=== PATIENT | female | born 1975 | race Caucasian/White ===

== ENCOUNTER 2017-02-16 11:59 | Emergency (ER) | payer SELFPAY ==
[2017-02-16] MEDS ORDERED: AMOXICILLIN TRIHYDRATE 500 MG CAPSULE PO ONE (12:58)
[2017-02-16] MEDS ORDERED: DEXAMETHASONE SOD PHOS INJ 10 MG/1 ML VIAL IM ONE (12:59)
--- NOTE | 2017-02-16 13:03 | ER Document Report ---
ED ENT - General Chief Complaint: Sore Throat Stated Complaint: SORE THROAT, SWOLLEN GLANDS Time Seen by Provider: 02/16/17 12:37 Mode of Arrival: Ambulatory Information source: Patient Notes: 41-year-old female presents to ED for complaint of throat pain that started when she woke up this morning. She denies any fever. TRAVEL OUTSIDE OF THE [place] IN LAST 30 DAYS: No - HPI Patient complains to provider of: Throat problem Onset: This morning Onset/Duration: Persistent Quality of pain: Sharp Severity: Moderate Pain Level: 4 Context: denies: Recent Illness Location of pain: Throat Associated symptoms: Sore throat, Swollen glands Similar symptoms previously: Yes Recently seen / treated by doctor: No - Related Data Allergies/Adverse Reactions: Sulfa (Sulfonamide Antibiotics) Allergy (Verified 11/08/14 11:30) Past Medical History - General Information source: Patient - Social History Smoking Status: Current Every Day Smoker Cigarette use (# per day): Yes - Half a pack per day Chew tobacco use (# tins/day): No Smoking Education Provided: Yes - 7 2 minutes Frequency of alcohol use: None Drug Abuse: None Lives with: Family Family History: Arthritis, CAD, CVA, DM, Hyperlipidemia, Hypertension, Malignancy, Thyroid Disfunction. denies: COPD Patient has suicidal ideation: No Patient has homicidal ideation: No - Past Medical History Cardiac Medical History: Reports: None Pulmonary Medical History: Reports: Hx Asthma EENT Medical History: Reports: None Neurological Medical History: Reports: None Endocrine Medical History: Reports: None Renal/ Medical History: Reports: None Malignancy Medical History: Reports: None GI Medical History: Reports: None Musculoskeltal Medical History: Reports Hx Arthritis, Reports Hx Musculoskeletal Trauma - Left shoulder fracture Skin Medical History: Reports None Psychiatric Medical History: Reports: Hx Anxiety, Hx Depression Traumatic Medical History: Reports: Hx Fractures - Left shoulder Infectious Medical History: Reports: None Past Surgical History: Reports: Hx Orthopedic Surgery - left shoulder, Hx Tubal Ligation - Immunizations Immunizations up to date: Yes Hx Diphtheria, Pertussis, Tetanus Vaccination: Yes Review of Systems - Review of Systems Constitutional: No symptoms reported EENT: Throat pain Cardiovascular: No symptoms reported Respiratory: No symptoms reported Gastrointestinal: No symptoms reported Genitourinary: No symptoms reported Female Genitourinary: No symptoms reported Musculoskeletal: No symptoms reported Skin: No symptoms reported Hematologic/Lymphatic: No symptoms reported Neurological/Psychological: No symptoms reported -: Yes All other systems reviewed and negative Physical Exam - Vital signs Vitals: Temp Pulse Resp BP Pulse Ox 98.8 F 116 H 18 107/66 99 02/16/17 12:04 02/16/17 12:04 02/16/17 12:04 02/16/17 12:04 02/16/17 12:04 Interpretation: Normal - General General appearance: Appears well, Alert - HEENT Head: Normocephalic, Atraumatic Eyes: Normal Pupils: PERRL Ears: Normal External canal: Normal Tympanic membrane: Normal Sinus: Normal Nasal: Normal Mouth/Lips: Normal Mucous membranes: Normal Pharynx: Erythema, Exudate, Tonsillar hypertrophy. No: Peritonsillar abscess, Post nasal drainage, Retropharyngeal abscess, Uvular edema, Potential airway comprom. Neck: Anterior cervical chain, Lymphadenopathy - Respiratory Respiratory status: No respiratory distress Chest status: Nontender Breath sounds: Normal Chest palpation: Normal - Cardiovascular Rhythm: Regular Heart sounds: Normal auscultation Murmur: No - Abdominal Inspection: Normal Distension: No distension Bowel sounds: Normal Tenderness: Nontender Organomegaly: No organomegaly - Back Back: Normal, Nontender - Extremities General upper extremity: Normal inspection, Nontender, Normal color, Normal ROM , Normal temperature General lower extremity: Normal inspection, Nontender, Normal color, Normal ROM , Normal temperature, Normal weight bearing. No: Gabriela's sign - Neurological Neuro grossly intact: Yes Cognition: Normal Orientation: AAOx4 [place] Coma Scale Eye Opening: Spontaneous Marilyn Coma Scale Verbal: Oriented [place] Coma Scale Motor: Obeys Commands [place] Coma Scale Total: 15 Speech: Normal Motor strength normal: LUE, RUE, LLE, RLE Sensory: Normal - Psychological Associated symptoms: Normal affect, Normal mood - Skin Skin Temperature: Warm Skin Moisture: Dry Skin Color: Normal Course - Re-evaluation Re-evalutation: 02/16/17 22:02 Patient treated with dexamethasone and Penicillin VK and discharged home with prescription for Penicillin VK. Patient to follow-up with primary doctor. - Vital Signs Vital signs: Temp Pulse Resp BP Pulse Ox 99.9 F 99 20 97/57 L 100 02/16/17 13:06 02/16/17 13:06 02/16/17 13:06 02/16/17 13:06 02/16/17 13:06 Discharge - Discharge Clinical Impression: Sore throat URI (upper respiratory infection) Qualifiers: URI type: unspecified URI Qualified Code(s): J06.9 - Acute upper respiratory infection, unspecified Condition: Stable Disposition: HOME, SELF-CARE Instructions: Family Physicians / Practices, Use of [id number] Ibuprofen ([facility]) Additional Instructions: SORE THROAT: Sore throats may be caused by viruses, bacteria, or fungi. Most are due to a virus, and must get better on their own. Bacterial sore throats, particularly those due to "strep," need treatment with antibiotics. If an antibiotic is prescribed, be sure to take the medication for a full 10 days. Failure to take the antibiotic can result in complications such as rheumatic fever. Sometimes, an injection of antibiotics is given instead of pills or liquid. This single "shot" is equal in effectiveness to the oral medication. To relieve symptoms, take acetaminophen for pain. Sip clear liquids frequently, or eat popsicles or ice chips. Anesthetic sprays or lozenges may help. Make sure the air in the room is not too dry. Avoid using decongestants or antihistamines. Call the doctor if there is no improvement in two days, or if you have difficulty breathing, increasing throat pain, high fever, rash, or frequent vomiting. PENICILLIN V K: You have been given a prescription for Penicillin VK. Your physician has determined that this is the best antibiotic for your condition. Pen VK can be taken with meals, however more of the antibiotic gets into the bloodstream if it's taken on an empty stomach. Penicillin usually has no side effects. However, allergy to penicillins is common. If you have had an allergic reaction to any drug of the penicillin family, you should never take any other penicillin. Notify your doctor at once if you develop hives, itching, swelling, faintness, or shortness of breath. STEROID MEDICATION: You have been given a medicine of the cortisone/steroid class. This medication is used to control inflammation or allergy. It is usually only given for a short period of time, until the acute process subsides. There are usually no side effects from short-term use of cortisone-like medications. Some persons feel an increased sense of well-being and are not sleepy at bedtime. Long-term use of cortisone medications is best avoided, unless required for a severe condition. If your condition does not remit, or relapses after the course of corticosteroid medication, you should consult your physician. FOLLOW-UP CARE: If you have been referred to a physician for follow-up care, call the physician s office for an appointment as you were instructed or within the next two days. If you experience worsening or a significant change in your symptoms, notify the physician immediately or return to the Emergency Department at any time for re-evaluation. Prescriptions: Amoxicillin 875 mg PO BID #20 tablet Forms: Smoking Cessation Education, Return to Work
[2017-02-16 13:07] VITALS: BP 97/57
== END 2017-02-16 13:22 | disposition home or self-care (01) ==
LOC: ER 11:59
DX: J02.9 Acute pharyngitis, unspecified (principal); J06.9 Acute upper respiratory infection, unspecified; F17.210 Nicotine dependence, cigarettes, uncomplicated; Z88.2 Allergy status to sulfonamides; Z98.51 Tubal ligation status
CPT/HCPCS: 99282; J1100

== ENCOUNTER 2017-11-23 13:16 | Emergency (ER) | payer SELFPAY ==
--- NOTE | 2017-11-23 14:02 | ER Document Report ---
ED Medical Screen (RME) - General Chief Complaint: Abscess Stated Complaint: ABCESS ON ARM Time Seen by Provider: 11/23/17 13:45 Mode of Arrival: Ambulatory Information source: Patient Notes: 42-year-old female presented to ED for complaint of an abscess to the left axilla. She states is been there for 3-4 days. She states she has never had abscess before in her life. She states she is not have a history of MRSA. He states he has had a cyst in this area the pop and did she was fine. I have greeted and performed a rapid initial assessment of this patient. A comprehensive ED assessment and evaluation of the patient, analysis of test results and completion of medical decision making process will be conducted by an additional ED providers. TRAVEL OUTSIDE OF THE [place] IN LAST 30 DAYS: No - Related Data Allergies/Adverse Reactions: Sulfa (Sulfonamide Antibiotics) Allergy (Verified 11/08/14 11:30) Past Medical History - Social History Chew tobacco use (# tins/day): No Frequency of alcohol use: None Drug Abuse: None Pulmonary Medical History: Reports: Hx Asthma Renal/ Medical History: Denies: Hx Peritoneal Dialysis Musculoskeltal Medical History: Reports Hx Arthritis, Reports Hx Musculoskeletal Trauma - Left shoulder fracture Psychiatric Medical History: Reports: Hx Anxiety, Hx Depression Traumatic Medical History: Reports: Hx Fractures - Left shoulder Past Surgical History: Reports: Hx Orthopedic Surgery - left shoulder, Hx Tubal Ligation - Immunizations Immunizations up to date: Yes Hx Diphtheria, Pertussis, Tetanus Vaccination: Yes Physical Exam - Vital signs Vitals: Temp Pulse Resp BP Pulse Ox 98.7 F 83 18 95/60 L 98 11/23/17 13:21 11/23/17 13:21 11/23/17 13:21 11/23/17 13:21 11/23/17 13:21 Course - Vital Signs Vital signs: Temp Pulse Resp BP Pulse Ox 98.7 F 83 18 95/60 L 98 11/23/17 13:21 11/23/17 13:21 11/23/17 13:21 11/23/17 13:21 11/23/17 13:21
[2017-11-23] MEDS ORDERED: DOXYCYCLINE HYCLATE 100 MG TABLET PO ONE (14:44)
[2017-11-23] MEDS ORDERED: HYDROCODONE/ACETAMINOPHEN 5-325 MG TABLET PO ONE (14:44)
--- NOTE | 2017-11-23 14:49 | ER Document Report ---
ED Skin Rash/Insect Bite/Abscs - General Chief Complaint: Abscess Stated Complaint: ABCESS ON ARM Time Seen by Provider: 11/23/17 13:45 Mode of Arrival: Ambulatory Information source: Patient TRAVEL OUTSIDE OF THE [place] IN LAST 30 DAYS: No - HPI Patient complains to provider of: Tender/swollen area Notes: Patient is here with complaints of abscess to the left under arm. She states that the area has been swollen for the last few weeks but over the last couple days is gotten painful and red. She states that there is a small amount of drainage that came out of larger swollen area. She denies any fevers. She denies any nausea, vomiting, diarrhea. No difficulty breathing or swallowing. She denies a history of diabetes or immunosuppression. Her systolic blood pressure is 95, the patient states that that is extremely normal for her. She denies any other symptoms or complaints at this time. - Related Data Allergies/Adverse Reactions: Sulfa (Sulfonamide Antibiotics) Allergy (Verified 11/08/14 11:30) Past Medical History - General Information source: Patient - Social History Smoking Status: Current Every Day Smoker Chew tobacco use (# tins/day): No Frequency of alcohol use: None Drug Abuse: None Family History: Arthritis, CAD, CVA, DM, Hyperlipidemia, Hypertension, Malignancy, Thyroid Disfunction. denies: COPD Patient has suicidal ideation: No Patient has homicidal ideation: No Pulmonary Medical History: Reports: Hx Asthma Renal/ Medical History: Denies: Hx Peritoneal Dialysis Musculoskeltal Medical History: Reports Hx Arthritis, Reports Hx Musculoskeletal Trauma - Left shoulder fracture Psychiatric Medical History: Reports: Hx Anxiety, Hx Depression Traumatic Medical History: Reports: Hx Fractures - Left shoulder Past Surgical History: Reports: Hx Orthopedic Surgery - left shoulder, Hx Tubal Ligation - Immunizations Immunizations up to date: Yes Hx Diphtheria, Pertussis, Tetanus Vaccination: Yes Review of Systems - Review of Systems -: Yes All other systems reviewed and negative Physical Exam - Vital signs Vitals: Temp Pulse Resp BP Pulse Ox 98.7 F 83 18 95/60 L 98 11/23/17 13:21 11/23/17 13:21 11/23/17 13:21 11/23/17 13:21 11/23/17 13:21 - Notes Notes: GENERAL: alert, cooperative, nontoxic, no distress. HEAD: normocephalic, atraumatic EYES: conjunctiva pink without discharge, no external redness or swelling. EARS: no external swelling, no external redness NOSE: atraumatic, no external swelling MOUTH/THROAT: mucous membranes moist and pink NECK: soft, supple, full range of motion, no meningismus. CHEST: no distress, lungs clear and equal throughout. No wheezing, rales, rhonchi. CARDIAC: regular rate and rhythm, no murmur, normal capillary refill, normal pulses. BACK: full range of motion, no CVA tenderness. EXTREMITIES: full range of motion of all extremities. No redness, no swelling. NEURO: alert and oriented 3, no focal deficits, full range of motion of all extremities. PYSCH: appropriate mood, affect. Patient is cooperative. SKIN: pink, warm, dry, no rash. 4 cm fluctuant abscess to the left axilla with surrounding cellulitis. Tenderness to palpation. There is a 1 cm fluctuant abscess no surrounding erythema to this abscess. They are both tender to palpation. No active drainage. Normal pulse and sensation distally. Course - Re-evaluation Re-evalutation: 11/23/17 14:46 Patient is nontoxic-appearing with stable vitals. Patient is here with complaints of left axillary abscess. She has 1 large abscess and one small abscess. She does have some surrounding cellulitis around the larger abscess. She is nontoxic-appearing and afebrile. She does not have diabetes or immunosuppression. At this point patient had both abscess I indeed. The larger one was packed. She will be given doxycycline due to her sulfa allergy as well as [place] for pain. She is instructed to return in 2 days or follow-up with her primary care doctor in 2 days for recheck. Try warm compresses to the sore area. She should follow-up sooner for worsening pain, fever, increased redness, persistent vomiting, or for any further concerns. Patient's systolic blood pressure is 95, she states that this is normal for her. The patient's emergency department workup and current diagnosis were explained to the patient and or family. Follow-up instructions were provided. Medications if prescribed were discussed. Instructions for when to return to the emergency department including specific worrisome symptoms were discussed with the patient and/or family. - Vital Signs Vital signs: Temp Pulse Resp BP Pulse Ox 98.7 F 83 18 95/60 L 98 11/23/17 13:21 11/23/17 13:21 11/23/17 13:21 11/23/17 13:21 11/23/17 13:21 Procedures - Incision and Drainage left axilla Type: Simple Anesthetic type: 1% Lidocaine Blade size: 11 I&D procedure: Betadine prep applied Incision Method: Incision made by scalpel Amount/type of drainage: moderate purulent Notes: 11/23/17 14:47 Probe with hemostats. Packed with iodoform gauze. left proxiaml arm Type: Simple Anesthetic type: 1% Lidocaine Blade size: 11 I&D procedure: Betadine prep applied, Sterile dressing applied Incision Method: Incision made by scalpel Amount/type of drainage: minimal purulent Notes: 11/23/17 14:48 Probe with hemostats. Patient tolerated both procedures well. Discharge - Discharge Clinical Impression: Abscess of axilla, left, Cellulitis of axilla, left Condition: Stable Disposition: HOME, SELF-CARE Instructions: Abscess ([facility]), MRSA Cellulitis ([facility]), Post Incision and Drainage , Oral Narcotic Medication ([facility]) Additional Instructions: Take medication as prescribed. Apply warm compresses to sore area. Follow-up with your doctor in the next 2 days or return the emergency department in 2 days for recheck to have packing removed. Follow-up sooner for worsening pain, fever, spreading redness, persistent vomiting, or for any further concerns. Prescriptions: Doxycycline Hyclate 100 mg PO BID #20 capsule Hydrocodone/Acetaminophen [[place] 5-325 mg Tablet] 2 tab PO Q6H PRN #15 tab PRN Reason: Forms: Elevated Blood Pressure, Smoking Cessation Education Referrals: [facility] [Provider Group] - Follow up as needed
[2017-11-23 15:04] VITALS: BP 105/60
== END 2017-11-23 15:04 | disposition home or self-care (01) ==
LOC: ER 13:16
PROC: 0H9CXZZ Drainage of Left Upper Arm Skin, External Approach (ICD-10-PCS; principal; 2017-11-23)
DX: L02.414 Cutaneous abscess of left upper limb (principal); L03.112 Cellulitis of left axilla; F17.200 Nicotine dependence, unspecified, uncomplicated; Z88.2 Allergy status to sulfonamides; Z98.51 Tubal ligation status
CPT/HCPCS: 99283; 10061; A6266

== ENCOUNTER 2018-09-10 05:41 | Inpatient (IN) | payer SELFPAY ==
[2018-09-10] MEDS ORDERED: ONDANSETRON HCL INJ/PF 4 MG/2 ML SDV IV ONE ×3 (06:29→13:05)
[2018-09-10] MEDS ORDERED: NORMAL SALINE 1000 ML 1,000 ML IV ONE ×2 (06:29→10:42)
[2018-09-10] MEDS ORDERED: MORPHINE SULFATE 10 MG/ML INJ IV ONE ×3 (06:29→13:18)
[2018-09-10 07:08] LABS: HEMOGLOBIN 12.9 g/dL (12.0-15.5); MEAN CORPUSCULAR HEMOGLOBIN 30.2 pg (27.0-33.4); MEAN CORPUSCULAR HGB CONC 34.7 g/dL (32.0-36.0); MEAN CORPUSCULAR VOLUME 87 fl (80-97); PLATELET COUNT 286 10^3/uL (150-450); RED BLOOD COUNT 4.25 10^6/uL (3.72-5.28); RED CELL DISTRIBUTION WIDTH 12.7 % (11.5-14.0); WHITE BLOOD COUNT 20.7 10^3/uL (4.0-10.5)
[2018-09-10 07:33] LABS: ALANINE AMINOTRANSFERASE 19 U/L (9-52); ALBUMIN 3.7 g/dL (3.5-5.0); ALKALINE PHOSPHATASE 66 U/L (38-126); ANION GAP 7 (5-19); ASPARTATE AMINO TRANSFERASE 18 U/L (14-36); BILIRUBIN,DIRECT 0.2 mg/dL (0.0-0.4); BILIRUBIN,TOTAL 0.6 mg/dL (0.2-1.3); BLOOD UREA NITROGEN 18 mg/dL (7-20); CALCIUM 9.4 mg/dL (8.4-10.2); CARBON DIOXIDE 24 mmol/L (22-30); CHLORIDE 108 mmol/L (98-107); GLUCOSE 130 mg/dL (75-110); POTASSIUM 4.1 mmol/L (3.6-5.0); SODIUM 138.6 mmol/L (137-145); TOTAL PROTEIN 6.4 g/dL (6.3-8.2)
[2018-09-10 07:47] LABS: ABSOLUTE LYMPHOCYTES# (MANUAL) 0.2 10^3/uL (0.5-4.7); ABSOLUTE MONOCYTES # (MANUAL) 0.2 10^3/uL (0.1-1.4); ABSOLUTE NEUTROPHILS# (MANUAL) 20.3 10^3/uL (1.7-8.2); BASOPHILS % (MANUAL) 0 % (0-2); EOSINOPHILS % (MANUAL) 0 % (0-6); LYMPHOCYTES % (MANUAL) 1 % (13-45); MONOCYTES % (MANUAL) 1 % (3-13); OVALOCYTES SLIGHT; PLATELET COMMENT ADEQUATE; POIKILOCYTOSIS SLIGHT; SEGMENTED NEUTROPHILS % (MAN) 98 % (42-78); TOTAL CELLS COUNTED 100
[2018-09-10 07:58] LABS: APPEARANCE,URINE CLOUDY; BILIRUBIN,URINE NEGATIVE (NEGATIVE); COLOR,URINE YELLOW; GLUCOSE, URINE NEGATIVE (NEGATIVE); KETONES,URINE NEGATIVE (NEGATIVE); LEUKOCYTE ESTERASE,URINE MODERATE (NEGATIVE); NITRITE,URINE NEGATIVE (NEGATIVE); PROTEIN,URINE NEGATIVE (NEGATIVE)
[2018-09-10] MEDS ORDERED: CEFTRIAXONE 1 GM/D5W RTU 1 GM/50 ML RTUPB IV ONE (08:34)
[2018-09-10 08:42] LABS: BACTERIA (WET MOUNT) 3+ BACTERIA SEEN; RBCS (WET MOUNT) 1+ RBCS SEEN; T.VAGINALIS (WET MOUNT) NO TRICHOMONAS SEEN; WBCS (WET MOUNT) 3+ WBCS SEEN; YEAST (WET MOUNT) NO YEAST SEEN
--- NOTE | 2018-09-10 08:44 | RADIOLOGY REPORT (SQ) ---
EXAM DESCRIPTION: ACUTE ABDOMEN SERIES COMPLETED DATE/TIME: 09/10/2018 8:31 am REASON FOR STUDY: abd pain COMPARISON: None. NUMBER OF VIEWS: Three views. TECHNIQUE: Frontal chest, supine abdomen and upright/decubitus abdomen radiographic images acquired. LIMITATIONS: None. FINDINGS: CHEST: Lungs clear of infiltrates. FREE AIR: None. No abnormal gas collections. BOWEL GAS PATTERN: Nonobstructive pattern. No dilated loops or air fluid levels. Mild to moderate co lonic fecal stasis right side of the abdomen. CALCIFICATIONS: No suspicious calcifications. HARDWARE: None in the abdomen. SOFT TISSUES: No gross mass or suggestion of organomegaly. BONES: No acute fracture. No worrisome bone lesions. OTHER: No other significant finding. IMPRESSION: 1. No acute pulmonary findings. 2. NO RADIOGRAPHIC EVIDENCE FOR ACUTE ABDOMINAL DISEASE. Mild to moderate right-sided colonic fecal stasis. TECHNICAL DOCUMENTATION: JOB ID: [id number] [employer]- All Rights Reserved Reading location - IP/workstation name: [email or web address]
[2018-09-10] MEDS ORDERED: KETOROLAC TROMETHAMINE INJ/PF 30 MG/1 ML SDV IV ONE (09:58)
[2018-09-10 10:13] LABS: CHLAM PCR NOT DETECTED (NOT DETECT); GON PCR DETECTED (NOT DETECT)
--- NOTE | 2018-09-10 10:16 | RADIOLOGY REPORT (SQ) ---
EXAM DESCRIPTION: U/S NON-OB PELVIS TV W/O DOP COMPLETED DATE/TIME: 09/10/2018 9:58 am REASON FOR STUDY: Pelvic pain, leukocytosis COMPARISON: 05/07/2011 TECHNIQUE: Dynamic and static grayscale images acquired of the pelvis via transvaginal approach and recorded on PACS. Additional selected color Doppler and spectral images recorded. LIMITATIONS: None. FINDINGS: UTERUS: A hypoechoic mass near the uterine fundus of the uterus measures 2.0 x 1.8 x 1.6 cm. Considerations for this finding includes fibroid. ENDOMETRIAL STRIPE: No focal or generalized thickening. No masses. CERVIX: The cervix measures 2.5 cm in length No nabothian cysts. RIGHT OVARY AND DOPPLER: Normal size. A 1.5 x 0.9 x 1.2 cm dominant follicle. Normal arterial vascu lar flow without evidence for torsion. LEFT OVARY AND DOPPLER: Normal size. No worrisome masses. Normal arterial vascular flow without evide nce for torsion. FREE FLUID: None noted. OTHER: No other significant finding. MEASUREMENTS: UTERUS: 8.6 x 6.1 x 5.2 cm ENDOMETRIAL STRIPE: 10.3 mm RIGHT OVARY: 3.1 x 1.8 x 1.9 cm LEFT OVARY: 2.9 x 1.8 x 1.4 cm IMPRESSION: 1. Uterine fibroid. 2. A dominant follicle in the right ovary. TECHNICAL DOCUMENTATION: JOB ID: [id number] [employer]- All Rights Reserved Rev-10/20 Reading location - IP/workstation name: [email or web address]
--- NOTE | 2018-09-10 14:35 | RADIOLOGY REPORT (SQ) ---
EXAM DESCRIPTION: CT ABD/PELVIS WITH IV ORAL COMPLETED DATE/TIME: 09/10/2018 2:14 pm REASON FOR STUDY: +GC, WBC 21,000 ANC 20,300 COMPARISON: None. TECHNIQUE: CT scan of the abdomen and pelvis performed using helical scanning technique with dynamic intravenous contrast injection. Oral enteric contrast administered. Images reviewed with lung, soft tissue, and bone windows. Reconstructed coronal and sagittal MPR images reviewed. Delayed images for evaluation of the urinary system also acquired. All images stored on PACS. All CT scanners at this facility use dose modulation, iterative reconstruction, and/or weight based d osing when appropriate to reduce radiation dose to as low as reasonably achievable (ALARA). [facility]: Dose Right [facility]: CareDose [facility]: Dose Right [facility]: Teradose 4D [facility]: Epidemic Sound CONTRAST TYPE AND DOSE: contrast/concentration: Isovue 350.00 mg/ml; Total Contrast Delivered: 57.0 ml; Total Saline Delivered: 65.0 ml RENAL FUNCTION: None required. The patient is less than 50 years old. RADIATION DOSE: CT Rad equipment meets quality standard of care and radiation dose reduction techniq ues were employed. CTDIvol: 4.8 - 4.9 mGy. DLP: 768 mGy-cm.. LIMITATIONS: None. FINDINGS: LOWER CHEST: Bibasilar scarring or atelectasis. LIVER: Normal size. No masses. No dilated ducts. SPLEEN: Normal size. No focal lesions. PANCREAS: No masses. No significant calcifications. No adjacent inflammation or peripancreatic fluid collections. Pancreatic duct not dilated. GALLBLADDER: No identified stones by CT criteria. No inflammatory changes to suggest cholecystitis. ADRENAL GLANDS: No significant masses or asymmetry. RIGHT KIDNEY AND URETER: No solid masses. No significant calcifications. No hydronephrosis or hyd roureter. LEFT KIDNEY AND URETER: No solid masses. No significant calcifications. No hydronephrosis or hydr oureter. AORTA AND VESSELS: No aneurysm. No dissection. Renal arteries, SMA, celiac without stenosis. RETROPERITONEUM: No retroperitoneal adenopathy, hemorrhage or masses. BOWEL AND PERITONEAL CAVITY: No masses or inflammatory changes. No free fluid or peritoneal masses. APPENDIX: Normal. PELVIS: No mass. No free fluid. Normal bladder. ABDOMINAL WALL: No masses. No hernias. BONES: No significant or acute findings. OTHER: No other significant finding. IMPRESSION: 1. No acute CT findings to explain abdominal pain. 2. Normal appendix. TECHNICAL DOCUMENTATION: JOB ID: [id number] Quality ID # [id number]: Final reports with documentation of one or more dose reduction techniques (e.g., Au tomated exposure control, adjustment of the mA and/or kV according to patient size, use of iterative reconstruction technique) 2010 [employer]- All Rights Reserved Reading location - IP/workstation name: [email or web address]
[2018-09-10] MEDS ORDERED: AZITHROMYCIN 250 MG TABLET PO ONE (14:49)
--- NOTE | 2018-09-10 14:52 | ER Document Report ---
Entered by TIFFANIE NULL SCRIBE 09/10/18 0637 Acting as scribe for:JENN GOLDBERG MD ED General - General Chief Complaint: Abdominal Pain Stated Complaint: ABDOMINAL PAIN Time Seen by Provider: 09/10/18 06:19 Mode of Arrival: Ambulatory Information source: Patient, [facility] Records Notes: Patient is a 43 year old female presenting to the emergency department complain ing of bilateral lower abdominal pain. Patient states the symptoms were onset approximately 1 week ago but has progressively worsened today. She reports the pain radiates into her bilateral flanks and further complains of urinary frequency, nausea and vomiting. Patient states she began to vomit yesterday morning. She reports having a bowel movement this morning which did not worsen or alleviate her pain. She denies fevers, burning with urination or vaginal discharge. TRAVEL OUTSIDE OF THE [place] IN LAST 30 DAYS: No - Related Data Allergies/Adverse Reactions: Sulfa (Sulfonamide Antibiotics) Allergy (Verified 11/08/14 11:30) Past Medical History - General Information source: Patient, [facility] Records - Social History Smoking Status: Current Every Day Smoker Cigarette use (# per day): Yes Chew tobacco use (# tins/day): No Smoking Education Provided: No Frequency of alcohol use: None Drug Abuse: None Occupation: unemployed Lives with: Friend Family History: Arthritis, CAD, CVA, DM, Hyperlipidemia, Hypertension, Malig aris, Thyroid Disfunction Patient has suicidal ideation: No Patient has homicidal ideation: No Pulmonary Medical History: Reports: Hx Asthma Renal/ Medical History: Reports: Other - Class III pap smear secondary HPV Musculoskeletal Medical History: Reports Hx Arthritis, Reports Hx Musculoskeletal Trauma - Left shoulder fracture Psychiatric Medical History: Reports: Hx Anxiety, Hx Depression Traumatic Medical History: Reports: Hx Fractures - Left shoulder Past Surgical History: Reports: Hx Orthopedic Surgery - left shoulder, Hx Tubal Ligation - Immunizations Immunizations up to date: Yes Hx Diphtheria, Pertussis, Tetanus Vaccination: Yes Review of Systems - Review of Systems Constitutional: No symptoms reported EENT: No symptoms reported Cardiovascular: No symptoms reported Respiratory: No symptoms reported Gastrointestinal: See HPI, Abdominal pain, Nausea, Vomiting Genitourinary: See HPI, Frequency Female Genitourinary: No symptoms reported Musculoskeletal: No symptoms reported Skin: No symptoms reported Hematologic/Lymphatic: No symptoms reported Neurological/Psychological: No symptoms reported -: Yes All other systems reviewed and negative Physical Exam - Vital signs Vitals: Temp Pulse Resp BP Pulse Ox 98.4 F 99 18 111/60 100 09/10/18 05:46 09/10/18 05:46 09/10/18 05:46 09/10/18 05:46 09/10/18 05:46 - Notes Notes: GENERAL: Alert, interacts well. No acute distress. HEAD: Normocephalic, atraumatic. EYES: Pupils equal, round, and reactive to light. Extraocular movements intact. ENT: Oral mucosa moist, tongue midline. NECK: Full range of motion. Supple. Trachea midline. LUNGS: Clear to auscultation bilaterally, no wheezes, rales, or rhonchi. No respiratory distress. HEART: Regular rate and rhythm. No murmurs, gallops, or rubs. ABDOMEN: Soft, exquisitely tender across the entire abdomen, guarding. Non- distended. Bowel sounds absent in LLQ, present in RUQ, RLQ and LUQ. LLQ is also dull to percussion. PELVIC: Pelvic exam shows scant cervical discharge. Swabs were obtained that looked blood tinged. There was some tannish mucus color. Bimanual shows exquisite uterine tenderness. Not seem to be very tender to palpate the bladder. EXTREMITIES: Moves all 4 extremities spontaneously. No edema. NEUROLOGICAL: Alert and oriented x3. Normal speech. PSYCH: Normal affect, normal mood. SKIN: Warm, dry, normal turgor. No rashes or lesions noted. Course - Re-evaluation Re-evalutation: 09/10/18 09:15 Wet prep shows 3+ bacteria and 3+ WBCs. - Vital Signs Vital signs: Temp Pulse Resp BP Pulse Ox 98.4 F 103 H 20 88/54 L 103 H 09/10/18 13:18 09/10/18 13:18 09/10/18 13:18 09/10/18 13:18 09/10/18 13:18 - Laboratory Result Diagrams: 09/10/18 06:45 09/10/18 06:45 Laboratory results interpreted by me: 09/10/18 09/10/18 09/10/18 06:45 06:45 07:39 WBC 20.7 H Seg Neuts % (Manual) 98 H Lymphocytes % (Manual) 1 L Monocytes % (Manual) 1 L Abs Neuts (Manual) 20.3 H Abs Lymphs (Manual) 0.2 L Chloride 108 H Glucose 130 H Urine Blood MODERATE H Urine Urobilinogen 2.0 H Ur Leukocyte Esterase MODERATE H N.gonorrhoeae DNA (PCR) 09/10/18 08:35 WBC Seg Neuts % (Manual) Lymphocytes % (Manual) Monocytes % (Manual) Abs Neuts (Manual) Abs Lymphs (Manual) Chloride Glucose Urine Blood Urine Urobilinogen Ur Leukocyte Esterase N.gonorrhoeae DNA (PCR) DETECTED H - Diagnostic Test Radiology reviewed: Image reviewed, Reports reviewed - AAS--ascending colon constipation CT scan of the abdomen and pelvis with oral and IV contrast does not show abnormality. - Consults Dr. Sandoval Time consulted: 14:50 Consulted provider: will see as inpatient Discharge - Discharge Clinical Impression: Gonococcal PID, female Leukocytosis Qualifiers: Leukocytosis type: unspecified Qualified Code(s): D72.829 - Elevated white blood cell count, unspecified Fever Qualifiers: Fever type: unspecified Qualified Code(s): R50.9 - Fever, unspecified Urinary tract infection Qualifiers: Urinary tract infection type: site unspecified Hematuria presence: without hematuria Qualified Code(s): N39.0 - Urinary tract infection, site not specified Condition: Stable Disposition: ADMITTED INPATIENT Admitting Provider: [facility] Unit Admitted: Medical Floor Scribe Attestation: 09/10/18 06:52 I personally performed the services described in the documentation, reviewed and edited the documentation which was dictated to the scribe in my presence, and it accurately records my words and actions. I personally performed the services described in the documentation, reviewed and edited the documentation which was dictated to the scribe in my presence, and it accurately records my words and actions.
--- NOTE | 2018-09-10 20:04 | PDOC H&P ---
History of Present Illness Admission Date/PCP: 09/10/18 15:25 Patient complains of: lower abdominal pain History of Present Illness: FRANCISCO VORA is a 43 year old female presented to ER today with 2 day history of lower abdominal pain. +GC testing in ER with negative CT/sono for TOA. Significant leukocytosis noted on bloodwork therefore Veterinary Anatomist contacted for admission for PID. Past Medical History Pulmonary Medical History: Reports: Asthma Renal/ Medical History: Reports: Other - Class III pap smear secondary HPV Musculoskeltal Medical History: Reports: Arthritis Psychiatric Medical History: Reports: Depression Past Surgical History Past Surgical History: Reports: Orthopedic Surgery - left shoulder, Tubal Ligation Social History Lives with: Friend Smoking Status: Current Every Day Smoker Cigarettes Packs Per Day: 0.5 Number of Years Smokin Last Time Smoked: T-1 Frequency of Alcohol Use: None Hx Recreational Drug Use: No Hx Prescription Drug Abuse: No - Advance Directive Resuscitation Status: Full Code Family History Family History: Arthritis, CAD, CVA, DM, Hyperlipidemia, Hypertension, Malignancy, Thyroid Disfunction Parental Family History Reviewed: Yes Children Family History Reviewed: Yes Sibling(s) Family History Reviewed.: Yes Medication/Allergy Home Medications: Ferrous Sulfate [Feosol 325 mg Tablet] 325 mg PO DAILY 09/10/18 Allergies/Adverse Reactions: Sulfa (Sulfonamide Antibiotics) Allergy (Verified 11/08/14 11:30) Physical Exam - Physical Exam Vital Signs: Temp Pulse Resp BP Pulse Ox 98.3 F 104 H 18 94/57 L 98 09/10/18 19:29 09/10/18 19:29 09/10/18 19:29 09/10/18 19:29 09/10/18 19:29 Intake & Output 09/09/18 09/10/18 09/11/18 06:59 06:59 06:59 Intake Total 2049 Balance 2049 Weight 49.895 kg 49.9 kg Result Laboratory Results: 09/10/18 06:45 09/10/18 06:45 09/10/18 09/10/18 09/10/18 06:45 06:45 06:45 WBC 20.7 H RBC 4.25 Hgb 12.9 Hct 37.0 MCV 87 MCH 30.2 MCHC 34.7 RDW 12.7 Plt Count 286 Seg Neutrophils % Not Reportable Lymphocytes % Not Reportable Monocytes % Not Reportable Eosinophils % Not Reportable Basophils % Not Reportable Absolute Neutrophils Not Reportable Absolute Lymphocytes Not Reportable Absolute Monocytes Not Reportable Absolute Eosinophils Not Reportable Absolute Basophils Not Reportable Sodium 138.6 Potassium 4.1 Chloride 108 H Carbon Dioxide 24 Anion Gap 7 BUN 18 Creatinine 0.54 Est GFR ( Amer) > 60 Est GFR (Non-Af Amer) > 60 Glucose 130 H Calcium 9.4 Total Bilirubin 0.6 AST 18 ALT 19 Alkaline Phosphatase 66 Total Protein 6.4 Albumin 3.7 Serum HCG, Qual NEGATIVE Urine Color Urine Appearance Urine pH Ur Specific [place] Urine Protein Urine Glucose (UA) Urine Ketones Urine Blood Urine Nitrite Ur Leukocyte Esterase Urine WBC (Auto) Urine RBC (Auto) 09/10/18 07:39 WBC RBC Hgb Hct MCV MCH MCHC RDW Plt Count Seg Neutrophils % Lymphocytes % Monocytes % Eosinophils % Basophils % Absolute Neutrophils Absolute Lymphocytes Absolute Monocytes Absolute Eosinophils Absolute Basophils Sodium Potassium Chloride Carbon Dioxide Anion Gap BUN Creatinine Est GFR ( Amer) Est GFR (Non-Af Amer) Glucose Calcium Total Bilirubin AST ALT Alkaline Phosphatase Total Protein Albumin Serum HCG, Qual Urine Color YELLOW Urine Appearance CLOUDY Urine pH 5.0 Ur Specific [place] 1.020 Urine Protein NEGATIVE Urine Glucose (UA) NEGATIVE Urine Ketones NEGATIVE Urine Blood MODERATE H Urine Nitrite NEGATIVE Ur Leukocyte Esterase MODERATE H Urine WBC (Auto) 72 Urine RBC (Auto) 6 Impressions: Acute Abdomen Series 09/10/18 06:31 IMPRESSION: 1. No acute pulmonary findings. 2. NO RADIOGRAPHIC EVIDENCE FOR ACUTE ABDOMINAL DISEASE. Mild to moderate ri ght-sided colonic fecal stasis. Transvaginal US 09/10/18 08:32 IMPRESSION: 1. Uterine fibroid. 2. A dominant follicle in the right ovary. Abdomen/Pelvis CT 09/10/18 10:23 IMPRESSION: 1. No acute CT findings to explain abdominal pain. 2. Normal appendix. 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 Is this a current diagnosis for this admission?: Yes (2) Fever Qualifiers: Fever type: unspecified Qualified Code(s): R50.9 - Fever, unspecified Is this a current diagnosis for this admission?: Yes (3) Leukocytosis Qualifiers: Leukocytosis type: unspecified Qualified Code(s): D72.829 - Elevated white blood cell count, unspecified Is this a current diagnosis for this admission?: Yes - Time Time Spent: 30 to 50 Minutes Critical Time spent with patient: 15-24 minutes Anticipated discharge: Home Within: within 48 hours - Inpatient Certification Based on my medical assessment, after consideration of the patient's comorbidities, presenting symptoms, or acuity I expect that the services needed warrant INPATIENT care.: Yes I certify that my determination is in accordance with my understanding of Medicare's requirements for reasonable and necessary INPATIENT services [42 CFR 412.3e].: Yes Medical Necessity: Need for Pain Control, Need for IV Antibiotics - Plan Summary Plan Summary: plan for mefoxitan and doxycycline for PID treatment. was given Rocephin and z ithromax in the ER already for the +GC findings. Treatment needed for 48 hours to be adequate.
[2018-09-10] MEDS ORDERED: PROMETHAZINE HCL INJ 25 MG/1 ML VIAL IV PRN (20:08)
[2018-09-10] MEDS ORDERED: OXYCODONE-ACETAMINOPHEN 5-325 MG TABLET PO PRN (20:08)
[2018-09-10] MEDS ORDERED: DOXYCYCLINE HYCLATE INJ 100 MG VIAL IV SCH (20:15)
[2018-09-10] MEDS: OXYCODONE-ACETAMINOPHEN 5-325 MG TABLET PO PRN (20:59)
[2018-09-10] MEDS ORDERED: CEFOXITIN INJ 1 GM VIAL IV SCH (22:00)
[2018-09-10] MEDS: DOXYCYCLINE HYCLATE 100 MG in DEXTROSE 5%-WATER 250 ML IV SCH (22:11)
[2018-09-11] MEDS: IBUPROFEN 800 MG TABLET PO SCH ×4 (00:28→17:16)
[2018-09-11] MEDS: OXYCODONE-ACETAMINOPHEN 5-325 MG TABLET PO PRN ×4 (02:07→21:16)
[2018-09-11] MEDS: CEFOXITIN SODIUM 2 GM in DEXTROSE 5%-WATER 100 ML IV SCH ×3 (02:08→17:17)
[2018-09-11 07:40] LABS: HEMATOCRIT 31.7 % (36.0-47.0); MEAN CORPUSCULAR HEMOGLOBIN 30.2 pg (27.0-33.4); MEAN CORPUSCULAR HGB CONC 34.1 g/dL (32.0-36.0); MEAN CORPUSCULAR VOLUME 89 fl (80-97); PLATELET COUNT 235 10^3/uL (150-450); RED BLOOD COUNT 3.58 10^6/uL (3.72-5.28); RED CELL DISTRIBUTION WIDTH 12.7 % (11.5-14.0); WHITE BLOOD COUNT 20.6 10^3/uL (4.0-10.5)
[2018-09-11 08:48] LABS: HEMOGLOBIN 10.8 g/dL (12.0-15.5)
--- NOTE | 2018-09-11 09:24 | PDOC PROGRESS REPORT ---
Subjective Progress Note for:: 09/11/18 Subjective:: pt feeling better but still has stomach pain Reason For Visit: GONOCOCCAL PID,FEMALE,LEUKOCYTOSIS,FEVER,URINARY Physical Exam - Physical Exam Vital Signs: Temp Pulse Resp BP Pulse Ox 97.6 F 100 14 93/57 L 97 09/11/18 08:30 09/11/18 08:30 09/11/18 08:30 09/11/18 08:30 09/11/18 08:30 Intake & Output 09/10/18 09/11/18 09/12/18 06:59 06:59 06:59 Intake Total 2890 Balance 2890 Weight 49.895 kg 47.9 kg General appearance: PRESENT: cooperative GI/Abdominal exam: PRESENT: tenderness Result Laboratory Results: 09/11/18 06:04 09/10/18 06:45 09/11/18 06:04 WBC 20.6 H RBC 3.58 L Hgb 10.8 L D Hct 31.7 L MCV 89 MCH 30.2 MCHC 34.1 RDW 12.7 Plt Count 235 Impressions: Acute Abdomen Series 09/10/18 06:31 IMPRESSION: 1. No acute pulmonary findings. 2. NO RADIOGRAPHIC EVIDENCE FOR ACUTE ABDOMINAL DISEASE. Mild to moderate right-sided colonic fecal stasis. Transvaginal US 09/10/18 08:32 IMPRESSION: 1. Uterine fibroid. 2. A dominant follicle in the right ovary. Abdomen/Pelvis CT 09/10/18 10:23 IMPRESSION: 1. No acute CT findings to explain abdominal pain. 2. Normal appendix. 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
[2018-09-11] MEDS: DOCUSATE SODIUM 100 MG CAPSULE PO SCH ×2 (09:56→17:16)
[2018-09-11] MEDS: DOXYCYCLINE HYCLATE 100 MG in DEXTROSE 5%-WATER 250 ML IV SCH ×2 (10:55→21:17)
[2018-09-12] MEDS: IBUPROFEN 800 MG TABLET PO SCH ×3 (00:39→12:49)
[2018-09-12] MEDS: OXYCODONE-ACETAMINOPHEN 5-325 MG TABLET PO PRN ×2 (02:36→08:21)
[2018-09-12] MEDS: CEFOXITIN SODIUM 2 GM in DEXTROSE 5%-WATER 100 ML IV SCH ×2 (02:37→11:03)
[2018-09-12 10:54] LABS: ABSOLUTE BASOPHILS # (AUTO) 0.1 10^3/uL (0.0-0.2); ABSOLUTE EOSINOPHILS # (AUTO) 0.3 10^3/uL (0.0-0.6); ABSOLUTE LYMPHOCYTES (AUTO) 0.9 10^3/uL (0.5-4.7); ABSOLUTE MONOCYTES (AUTO) 0.5 10^3/uL (0.1-1.4); ABSOLUTE NEUT (AUTO) 11.7 10^3/uL (1.7-8.2); BASOPHILS % (AUTO) 0.4 % (0-2); EOSINOPHILS % (AUTO) 2.3 % (0-6); HEMATOCRIT 29.9 % (36.0-47.0); HEMOGLOBIN 10.4 g/dL (12.0-15.5); LYMPHOCYTES % (AUTO) 6.8 % (13-45); MEAN CORPUSCULAR HEMOGLOBIN 30.8 pg (27.0-33.4); MEAN CORPUSCULAR HGB CONC 34.7 g/dL (32.0-36.0); MEAN CORPUSCULAR VOLUME 89 fl (80-97); MONOCYTES % (AUTO) 3.6 % (3-13); PLATELET COUNT 221 10^3/uL (150-450); RED BLOOD COUNT 3.38 10^6/uL (3.72-5.28); RED CELL DISTRIBUTION WIDTH 12.8 % (11.5-14.0); SEGMENTED NEUTROPHILS % (AUTO) 86.9 % (42-78); TOTAL CELLS COUNTED % (AUTO) 100 %; WHITE BLOOD COUNT 13.5 10^3/uL (4.0-10.5)
[2018-09-12] MEDS: DOXYCYCLINE HYCLATE 100 MG in DEXTROSE 5%-WATER 250 ML IV SCH (11:03)
[2018-09-12] MEDS: DOCUSATE SODIUM 100 MG CAPSULE PO SCH (11:04)
[2018-09-12] MEDS ORDERED: LIDOCAINE HCL 1% INJ (FOR 250 MG VIAL) INJ ONE (13:00)
[2018-09-12] MEDS ORDERED: CEFTRIAXONE INJ 250 MG VIAL IM ONE (13:00)
--- NOTE | 2018-09-12 13:00 | PDOC DISCHARGE SUMMARY ---
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 Physical Exam - Physical Exam Vital Signs: Temp Pulse Resp BP Pulse Ox 98.0 F 93 15 102/60 98 09/12/18 11:16 09/12/18 11:16 09/12/18 11:16 09/12/18 11:16 09/12/18 11:16 Intake & Output 09/11/18 09/12/18 09/13/18 06:59 06:59 06:59 Intake Total 2890 2580 640 Balance 2890 2580 640 Weight 47.9 kg 47.7 kg General appearance: PRESENT: no acute distress, well-developed, well-nourished Result Laboratory Results: 09/12/18 10:06 09/10/18 06:45 09/12/18 10:06 WBC 13.5 H RBC 3.38 L Hgb 10.4 L Hct 29.9 L MCV 89 MCH 30.8 MCHC 34.7 RDW 12.8 Plt Count 221 Seg Neutrophils % 86.9 H Lymphocytes % 6.8 L Monocytes % 3.6 Eosinophils % 2.3 Basophils % 0.4 Absolute Neutrophils 11.7 H Absolute Lymphocytes 0.9 Absolute Monocytes 0.5 Absolute Eosinophils 0.3 Absolute Basophils 0.1 09/10/18 07:39 Clean Catch Midstream Urine Culture - Final Escherichia Coli Impressions: Acute Abdomen Series 09/10/18 06:31 IMPRESSION: 1. No acute pulmonary findings. 2. NO RADIOGRAPHIC EVIDENCE FOR ACUTE ABDOMINAL DISEASE. Mild to moderate right-sided colonic fecal stasis. Transvaginal US 09/10/18 08:32 IMPRESSION: 1. Uterine fibroid. 2. A dominant follicle in the right ovary. Abdomen/Pelvis CT 09/10/18 10:23 IMPRESSION: 1. No acute CT findings to explain abdominal pain. 2. Normal appendix. Plan Discharge Plan: Plan IM rhocephin and home on doxycyline with followup in two weeks.
[2018-09-12 15:55] VITALS: BP 117/72
== END 2018-09-12 16:44 | disposition home or self-care (01) | DRG 758 ==
LOC: ER 05:41 → EH 15:25 → 2N 17:15
PROVIDERS: ADMIT Obstetrics & Gynecology; ATTEND Obstetrics & Gynecology
DX: A54.24 Gonococcal female pelvic inflammatory disease (principal); N39.0 Urinary tract infection, site not specified; D72.829 Elevated white blood cell count, unspecified; J45.909 Unspecified asthma, uncomplicated; M19.90 Unspecified osteoarthritis, unspecified site; F32.9 Major depressive disorder, single episode, unspecified; F17.210 Nicotine dependence, cigarettes, uncomplicated; Z98.51 Tubal ligation status; Z88.2 Allergy status to sulfonamides
CPT/HCPCS: 36415; 74022; 74177; 76830; 80053; 81001; 84703; 85025; 85027; 87040; 87086; 87088; 87186; 87210; 87491; 87591; 96361; 96365; 96375; 96376; 99285; J0694; J0696; J1885; J2270; J2405; J3490; J7030; J7060